=== PATIENT | male | born 1990 | race Caucasian/White ===

== ENCOUNTER 2022-03-29 12:10 | Emergency (ER) | payer MEDICAID ==
[~2022-03-29] VITALS: Ht 172.7 cm; Wt 80.0 kg
[2022-03-29] MEDS ORDERED: HYDROCODONE/ACETAMINOPHEN 5/325MG TABLET PO ONE (12:30)
[2022-03-29] MEDS ORDERED: MORPHINE SULFATE 10 MG/ML CPJ IM ONE (14:30)
[2022-03-29] MEDS ORDERED: IBUP-2029 MT (15:05)
[2022-03-29] MEDS ORDERED: HYDR-4001 MT (15:05)
[2022-03-29 15:41] VITALS: BP 133/77
== END 2022-03-29 15:45 | disposition home or self-care (01) ==
LOC: ER 12:10
DX: S92.002A Unspecified fracture of left calcaneus, initial encounter for closed fracture (principal); V03.931A Pedestrian on standing electric scooter injured in collision with car, pick-up or van, unspecified whether traffic or nontraffic accident, initial encounter; Y93.I9 Activity, other involving external motion; Y92.488 Other paved roadways as the place of occurrence of the external cause
CPT/HCPCS: 29515; 73610; 73620; 96372; 99284; J2270; Z7610